=== PATIENT | female | born 1990 | race Two or more races ===

== ENCOUNTER 2023-05-23 15:12 | Outpatient (REF) | payer MEDICAID, SELFPAY ==
--- NOTE | ~2023-05-23 | XR_ITS ---
EXAMINATION: XR THORACOLUMBAR SPINE CLINICAL INFORMATION: Midline low back pain COMPARISON: None available. TECHNIQUE: AP and lateral views of thoracic spine FINDINGS: The vertebral alignment is normal. No intrinsic bony abnormality. There is mild levoscoliosis of lower thoracic spine The disc heights and neural foramina are well maintained. The endplates and posterior elements are normal. No fracture or subluxation. The surrounding prevertebral soft tissues are unremarkable. XR/XR thoracic spine 2V IMPRESSION: Mild levoscoliosis of lower thoracic spine.
--- NOTE | ~2023-05-23 | XR_ITS ---
EXAMINATION: XR LUMBOSACRAL SPINE CLINICAL INFORMATION: Low back pain COMPARISON: None available. TECHNIQUE: Three views of the lumbosacral spine. FINDINGS: The vertebral bodies and posterior elements are normal. The disc spaces are preserved and the vertebral alignment is normal. The paraspinal soft tissues are normal. XR/XR lumbar spine 2-3V IMPRESSION: Unremarkable examination.
== END 2023-05-23 15:13 | disposition home or self-care (01) ==
LOC: HO.HHCX 15:12
PROVIDERS: Visit Provider Emergency Medicine
DX: M54.50 Low back pain, unspecified (principal); M54.6 Pain in thoracic spine
CPT/HCPCS: 72070; 72100